=== PATIENT | female | born 1990 | race Two or more races ===

== ENCOUNTER 2024-03-29 20:41 | Observation (INO) | payer MEDICAID, SELFPAY ==
[2024-03-29] VITALS (10 sets, daily range): BP systolic 137–192; BP diastolic 84–97; PULSE 88–116; RESP 18; TEMP 36.8; O2SAT 98; BMI 40.5
[2024-03-29 19:12] LABS: Collection Type, Urine Clean Catch; RBC,Urine 0 /hpf (0-3)
[2024-03-29] MEDS: LABETALOL 100 MG TABLET 200 MG PO (19:15)
[2024-03-29 19:30] LABS: Basophils % (Auto) 0 % (0-2.5); Eosinophils % (Auto) 0 % (0-10); Hematocrit 35.3 % (36.0-46.0); Hemoglobin 11.7 g/dL (12.0-16.0); Immature Granulocytes % (Auto) 0 % (0-0); Immature Granulocytes Auto 0.04 Thou/mm3 (0.00-0.00); Lymphocytes # (Auto) 1.8 Thou/mm3 (1.0-4.8); Lymphocytes % (Auto) 19 % (10-50); Mean Corpuscular HGB Conc 33.1 g/dl (31.0-37.0); Mean Corpuscular Hemoglobin 28.2 pg (25.0-35.0); Mean Corpuscular Volume 85 fL (80-100); Monocytes # (Auto) 0.6 Thou/mm3 (0.0-0.8); Monocytes % (Auto) 7 % (0-12); Neutrophils # (Auto) 6.9 Thou/mm3 (1.8-7.7); Neutrophils % (Auto) 73 % (37-80); Nucleated Red Blood Cell % 0 /100 WBC (0); Platelet Count 285 Thou/mm3 (140-440); RDW Standard Deviation 45.1 fL (36.4-46.3); Red Blood Count 4.15 Miln/mm3 (4.00-5.20); White Blood Count 9.4 Thou/mm3 (3.6-11.0)
[2024-03-29 19:55] LABS: Bacteria,Urine Rare; Bilirubin,Urine Negative (Negative); Blood,Urine Negative (Negative); Clarity,Urine Clear (Clear/Hazy); Color,Urine Lt-Yellow (Lt Yel-Yel); Glucose, Urine Negative (Negative); Ketones,Urine 1+ (Negative); Leukocyte Esterase,Urine Positive (Negative); Nitrite,Urine Negative (Negative); PH,Urine 6.5 (5.0-7.0); Protein,Urine Trace (Neg - Trace); Squamous Epithelial Cell,Urine 6 /hpf (0-5); Urobilinogen,Urine Negative mg/dL (0.0-1.0); WBC,Urine 4 /hpf (0-5)
[2024-03-29 20:54] LABS: INR 0.9 (0.9-1.3); Partial Thromboplastin Time 23.5 Seconds (22.0-36.0); Prothrombin Time 10.2 Seconds (9.0-12.2)
[2024-03-29 20:55] LABS: Fibrinogen 620 mg/dL (175-375)
--- NOTE | 2024-03-30 01:20 | PC.NURSE ---
Patient left AMA at 202303/29/2024. 1999- lab at bedside to draw repeat labs due to previously drawn labs hemolysing; pt refuses lab draw. 2000- pt educated on importance of labs and their results; pt verbalizes understanding and states I am going to go home, I have to come back in 24 hours. I am tired and I am hungry . pt made aware this would be against medical advice. pt request for AMA form. 2005- Dr Goldsmith made aware of pt request to leave AMA. 2007- pt educated on importance of being evaluated due to her blood pressures, pt educated on risks of leaving AMA such as possible seizure, placental abruption, uterine rupture, , etc, benefits of staying such as further monitoring and evaluation for her and her babys safety, and alternatives to leaving such as turning off the lights so pt can rest here. pt verbalizes understanding and still desires to leave. AMA form signed. 2023- pt leaves triage.
== END 2024-03-29 22:00 | disposition left against medical advice (07) ==
PROVIDERS: Admitting Provider Obstetrics & Gynecology; Visit Provider Obstetrics & Gynecology
DX: O26.893 Other specified pregnancy related conditions, third trimester (principal); R03.0 Elevated blood-pressure reading, without diagnosis of hypertension; Z3A.39 39 weeks gestation of pregnancy
CPT/HCPCS: 36415; 59025; 59899; 80053; 81001; 83615; 84550; 85025; 85384; 85610; 85730; 86780; 86900; 86901; A9270